=== PATIENT | female | born 2000 | race Caucasian/White ===

== ENCOUNTER 2023-04-27 11:41 | Emergency (ER) | payer SELFPAY ==
[2023-04-27 11:56] VITALS: RESP 18; BMI 26.1
[2023-04-27 13:48] LABS: BASO % 0.3 % (0-2.0); EOS % 0.6 % (0-4.5); HEMATOCRIT 38.3 % (32.4-45.2); HEMOGLOBIN 12.6 GM/dL (10.7-15.3); LYMPH % 24.2 % (8-40); MCH 28.1 pg (25.7-33.7); MCHC 32.8 g/dl (32.0-36.0); MEAN CELL VOLUME 85.7 fl (80-96); MEAN PLT VOLUME 7.4 fl (7.5-11.1); MONO % 6.8 % (3.8-10.2); NEUT % 68.1 % (42.8-82.8); PLATELET COUNT 264 10^3/uL (134-434); RBC 4.47 M/mm3 (3.60-5.2); RDW 13.8 % (11.6-15.6); WHITE BLOOD COUNT 9.8 K/mm3 (4.0-10.0)
[2023-04-27 13:49] LABS: EPI CELLS >36 /uL (0-25.1); HYALINE CASTS 0 /uL (0-3.1); PH,URINE 6.5 (5.0-8.0); URINE APPEARANCE CLEAR; URINE BACTERIA 475 /uL (0-1359); URINE BILIRUBIN NEGATIVE (NEGATIVE); URINE COLOR YELLOW; URINE GLUCOSE (UA) NEGATIVE (NEGATIVE); URINE KETONE NEGATIVE (NEGATIVE); URINE LEUK ESTERASE 2+ (NEGATIVE); URINE NITRITE NEGATIVE (NEGATIVE); URINE PROTEIN NEGATIVE (NEGATIVE); URINE RBC 6 /uL (0-23.9); URINE WBC 37 /uL (0-25.8)
[2023-04-27 14:13] LABS: POTASSIUM 4.3 mmol/L (3.5-5.1)
[2023-04-27 14:17] LABS: ALBUMIN 2.4 g/dl (3.4-5.0); CALCIUM 9.1 mg/dL (8.5-10.1)
[2023-04-27 14:20] LABS: CREATININE 0.4 mg/dL (0.55-1.3)
[2023-04-27 14:22] LABS: BILIRUBIN,TOTAL 0.2 mg/dL (0.2-1); TOT PROT 6.7 g/dl (6.4-8.2)
[2023-04-27 15:37] VITALS: BP 114/70; PULSE 76; TEMP 98.7
[2023-04-27 15:44] LABS: PHENCYCLIDINE,URINE NEGATIVE (NEGATIVE); URINE BENZODIAZEPINES NEGATIVE (NEGATIVE)
[2023-04-27 15:49] LABS: OPIATES, URI NEGATIVE (NEGATIVE)
[2023-04-27 15:50] LABS: URINE AMPHETAMINES NEGATIVE (NEGATIVE)
[2023-04-27 15:57] LABS: METHADONE, UR NEGATIVE (NEGATIVE)
[2023-04-27 16:01] LABS: URINE BARBITURATES NEGATIVE (NEGATIVE)
[2023-04-27 16:08] LABS: COCAINE, UR NEGATIVE (NEGATIVE)
== END 2023-04-27 16:08 | disposition home or self-care (01) ==
LOC: JER 11:41 → JERFT 11:41 → JER 16:08
DX: O26.43 Herpes gestationis, third trimester (principal); O26.893 Other specified pregnancy related conditions, third trimester; R51.9 Headache, unspecified; Z3A.28 28 weeks gestation of pregnancy; Z20.822 Contact with and (suspected) exposure to COVID-19
CPT/HCPCS: 0241U-QW; 36415; 80053; 80307; 81003; 85025; 86695; 86696; 87086; 87255; 99283-25

== ENCOUNTER 2023-06-29 15:20 | Inpatient (IN) | payer OTHER ==
[2023-06-29] MEDS: ELECTROLYTE-148 SOLN 1,000 ML IV SCH ×2 (15:45→18:51)
[2023-06-29] MEDS ORDERED: AMPICILLIN - 2 GM in SODIUM CHLORIDE 100 ML IVPB ONE (16:23)
[2023-06-29] MEDS ORDERED: NALOXONE HCL 0.4 MG/ML VIAL IVPUSH PRN (16:42)
[2023-06-29] MEDS ORDERED: FENTANYL CITRATE/PF 50 MCG/ML VIAL ONE (16:45)
[2023-06-29] MEDS ORDERED: BUPIVACAINE HCL/PF 0.25% (2.5MG/ML) 10 ML VIAL ONE (16:45)
[2023-06-29] MEDS ORDERED: FENTANYL/BUPIVACAINE/NS/PF - PCEA - 50 ML DISP.SYRIN EP SCH (16:45)
[2023-06-29] MEDS ORDERED: FENTANYL/BUPIVACAINE/NS/PF - PCEA - 50 ML DISP.SYRIN EP ONE ×2 (16:48→21:24)
[2023-06-29] MEDS ORDERED: AMPICILLIN SODIUM 2 GM VIAL ONE (17:19)
[2023-06-29] MEDS ORDERED: SODIUM CHLORIDE 100 ML IVPB ONE (17:19)
[2023-06-29 17:37] VITALS: BMI 28.3
[2023-06-29] MEDS ORDERED: OXYTOCIN 20 UNITS in 0.9% NS 20 UNIT/1,000 ML INFUS.BAG IV ONE (19:52)
[2023-06-29] MEDS ORDERED: AMPICILLIN SODIUM 1 GM VIAL ONE (20:18)
[2023-06-29] MEDS: AMPICILLIN - 1 GM in SODIUM CHLORIDE 100 ML IVPB SCH (20:23)
[2023-06-29] MEDS ORDERED: OXYTOCIN 30 UNITS in 0.9% NS 30 UNIT/500 ML INFUS.BAG IVPB SCH (20:45)
[2023-06-29] MEDS ORDERED: DEXTROSE 5%-LACTATED RINGERS 1,000 ML IV SCH (22:00)
[2023-06-30] MEDS ORDERED: AMPICILLIN SODIUM 1 GM VIAL ONE (00:02)
[2023-06-30] MEDS: AMPICILLIN - 1 GM in SODIUM CHLORIDE 100 ML IVPB SCH (00:04)
[2023-06-30] MEDS ORDERED: OXYTOCIN 30 UNITS in 0.9% NS 30 UNIT/500 ML INFUS.BAG IVPB ONE (00:36)
[2023-06-30] MEDS ORDERED: ACETAMINOPHEN 325 MG TABLET (FP) PO PRN (01:29)
[2023-06-30] MEDS ORDERED: WITCH HAZEL 50% (TUCKS) 40 PAD/JAR PAD TP PRN (01:29)
[2023-06-30] MEDS ORDERED: BENZOCAINE 28 GM HEMORRHOIDAL OINTMENT TP PRN (01:29)
[2023-06-30] MEDS ORDERED: IBUPROFEN 600 MG TABLET (FP) PO PRN (01:29)
[2023-06-30] MEDS ORDERED: BENZOCAINE 20% 57 GM BOTTLE TP PRN (01:29)
[2023-06-30] MEDS ORDERED: BISACODYL 10 MG SUPP.RECT RC PRN (01:29)
[2023-06-30] MEDS ORDERED: OXYTOCIN 20 UNITS in 0.9% NS 20 UNIT/1,000 ML INFUS.BAG IV SCH (01:30)
[2023-06-30 02:06] LABS: CORD BASE EXCESS -10.7 mmol/L (0-2); CORD HCO3 16.1 mmHg (20-29); CORD PCO2 38.9 mmHg (30-78); CORD pH 7.234 (7.14-7.44)
[2023-06-30] MEDS ORDERED: DIPHTH,PERTUSS(ACELL),TET 0.5 ML DISP.SYRIN IM ONE (10:00)
[2023-06-30 11:05] LABS: POC NITRAZINE POS
[2023-07-01 08:53] LABS: BASO % 0.5 % (0-2.0); EOS % 0.3 % (0-4.5); HEMATOCRIT 35.1 % (32.4-45.2); HEMOGLOBIN 11.4 GM/dL (10.7-15.3); LYMPH % 16.3 % (8-40); MCH 27.1 pg (25.7-33.7); MCHC 32.5 g/dl (32.0-36.0); MEAN CELL VOLUME 83.4 fl (80-96); MEAN PLT VOLUME 8.6 fl (7.5-11.1); MONO % 4.9 % (3.8-10.2); PLATELET COUNT 159 10^3/uL (134-434); RDW 16.7 % (11.6-15.6); WHITE BLOOD COUNT 19.6 K/mm3 (4.0-10.0)
[2023-07-02 10:51] VITALS: BP 111/74; PULSE 88; RESP 16; TEMP 97.9
== END 2023-07-02 18:15 | disposition home or self-care (01) | DRG 560 ==
LOC: JDEL 15:20 → JLDR 15:21 → J3W 06-30 03:31
PROVIDERS: ADMIT Student in an Organized Health Care Education/Training Program; ATTEND Student in an Organized Health Care Education/Training Program
PROC: 10E0XZZ Delivery of Products of Conception, External Approach (ICD-10-PCS; principal; 2023-06-30)
PROC: 0HQ9XZZ Repair Perineum Skin, External Approach (ICD-10-PCS; 2023-06-30)
DX: O70.0 First degree perineal laceration during delivery (principal); Z3A.39 39 weeks gestation of pregnancy; Z37.0 Single live birth
CPT/HCPCS: 36415; 36600; 59025; 80048; 80307; 82803; 83986-QW; 85025; 85610; 85730; 86780; 86850; 86900; 86901; 87389; 90715; G0378

== ENCOUNTER 2024-05-09 10:37 | Emergency (ER) | payer OTHER ==
[2024-05-09 10:48] VITALS: BP 102/66; PULSE 77; RESP 20; TEMP 97.6; BMI 22.6
[2024-05-09] MEDS ORDERED: IBUPROFEN 400 MG TABLET (FP) PO ONE (11:25)
[2024-05-09] MEDS ORDERED: AMOX TR/POT CLAV 875MG/125MG TABLETS (FP) ONE (11:25)
[2024-05-09] MEDS: AMOX TR/POT CLAV 875MG/125MG TABLETS (FP) PO ONE (11:30)
[2024-05-09] MEDS: IBUPROFEN 400 MG TABLET (FP) PO ONE (11:30)
== END 2024-05-09 11:38 | disposition home or self-care (01) ==
LOC: JERFT 10:37
DX: H92.01 Otalgia, right ear (principal); R09.81 Nasal congestion; H66.91 Otitis media, unspecified, right ear; J00 Acute nasopharyngitis [common cold]
CPT/HCPCS: 99283-25